=== PATIENT | female | born 1980 | race Caucasian/White ===

== ENCOUNTER 2017-10-26 15:57 | Emergency (ER) | payer OTHER ==
[~2017-10-26] VITALS: Ht 154.9 cm; Wt 62.6 kg
[2017-10-26] MEDS ORDERED: PRENATAL + DHA1 EAC1 (16:22)
[2017-10-26] MEDS ORDERED: PROGESTERONE100 MG (16:22)
[2017-10-27] MEDS ORDERED: PROGESTERO50 MG/1 M1 IM (08:46)
[2017-10-27] MEDS ORDERED: PROGESTERONE100 MG PO (08:46)
== END 2017-10-27 09:04 | disposition home or self-care (01) ==
LOC: ER 15:57
DX: Z34.81 Encounter for supervision of other normal pregnancy, first trimester (principal); O20.0 Threatened abortion

== ENCOUNTER 2018-06-05 09:15 | Inpatient (IN) | payer OTHER ==
[~2018-06-05] VITALS: Ht 154.9 cm; Wt 76.2 kg
[~2018-06-05 09:15] MED LIST: PRENATAL + DHA1 EAC1; PROGESTERO50 MG/1 M1 IM; PROGESTERONE100 MG; PROGESTERONE100 MG PO
== END 2018-06-15 12:12 | DRG 785 ==
LOC: O/R 06-12 06:29 → LDR 06-12 07:00 → OB/GYN 06-12 17:31
PROVIDERS: Obstetrics & Gynecology
PROC: 0UB70ZZ Excision of Bilateral Fallopian Tubes, Open Approach (ICD-10-PCS; 2018-06-12)
PROC: 4A1HXCZ Monitoring of Products of Conception, Cardiac Rate, External Approach (ICD-10-PCS; 2018-06-12)
PROC: 10D00Z1 Extraction of Products of Conception, Low, Open Approach (ICD-10-PCS; principal; 2018-06-12 07:00)
DX: O34.211 Maternal care for low transverse scar from previous cesarean delivery (principal); O75.82 Onset (spontaneous) of labor after 37 completed weeks of gestation but before 39 completed weeks gestation, with delivery by (planned) cesarean section; Z3A.39 39 weeks gestation of pregnancy; Z37.0 Single live birth; Z30.2 Encounter for sterilization